=== PATIENT | male | born 1975 | race Caucasian/White ===

== ENCOUNTER 2016-11-03 17:05 | Emergency (ER) | payer OTHER ==
[2016-11-03] MEDS ORDERED: HYDROmorphone 1 MG/ML 1 ML SYRINGE IVP STA ×2 (18:12→20:16)
[2016-11-03] MEDS ORDERED: SODIUM CHLORIDE 0.9% 500 ML IV STA (18:12)
[2016-11-03] MEDS ORDERED: ACETAMINOPHEN TAB 325 MG TAB PO STA (18:12)
[2016-11-03] MEDS ORDERED: ONDANSETRON 4 MG/2 ML VIAL IVP STA (18:14)
--- NOTE | 2016-11-03 18:20 | ED ---
General Adult HPI - General Chief complaint: Back Pain/Injury Stated complaint: Back Pain Time Seen by Provider: 11/03/16 17:52 Source: patient, family, RN notes reviewed, old records reviewed Mode of arrival: wheelchair Limitations: no limitations - History of Present Illness Initial comments: Chief complaint and history of present illness is a 41-year-old male to complaint of back pain. The patient reports he had his seventh lumbar surgery on his back proximal one week ago in [place]. After the surgery he was starting had discomfort to the right hip area and now radiates into the right groin area and down the medial aspect of the right leg. Today's temperature 99.8 denying any cough or chills. She reports she's not been out of control his pain at home despite the fact that he is on MS Contin twice a day and Percocet every 6 hours. As well as Valium. He was told to come the hospital for evaluation. - Related Data Home Medications Medication Instructions Recorded Confirmed Aspirin 325 mg PO DAILY 05/16/16 11/03/16 Atenolol [Tenormin] 50 mg PO DAILY 05/16/16 11/03/16 Lisinopril [Prinivil] 20 mg PO DAILY 05/16/16 11/03/16 Lansoprazole [Prevacid] 30 mg PO DAILY 11/03/16 11/03/16 Morphine Sulfate [Ms Contin] 30 mg PO Q12HR 11/03/16 11/03/16 Phentermine HCl [Adipex-P] 37.5 mg PO QAM 11/03/16 11/03/16 oxyCODONE-APAP 10-325MG [Percocet 1 tab PO Q6HR 11/03/16 11/03/16 10-325 mg] Previous Rx's Medication Instructions Recorded Cephalexin [Keflex] 500 mg PO Q6HR #32 cap 11/03/16 Allergies Allergy/AdvReac Type Severity Reaction Status Date / Time NSAIDS (Non-Steroidal Allergy Anaphylaxis Verified 11/03/16 17:46 Anti-Inflamma Review of Systems ROS Statement: Those systems with pertinent positive or pertinent negative responses have been documented in the HPI. Review of systems. The patient complains of back pain not getting under control since surgery 1 week ago. Patient reports that of the multiple past surgeries one time he did develop infection in the back. The hardware was removed the area reportedly healed. He has had subsequent surgery since then. Patient otherwise not complaining of headache chest pain or shortness of breath. No change in bowel habits or appetite. He does report having taken some milk of magnesia to help with bowel movement. Past medical problems significant for asthma, he has had a stroke. Since then he had a hole in his heart repaired. Also hyperlipidemia and hypertension course chronic back pain. Orthopedic surgery 7 on his back. Patient reports ALLERGIES to nonsteroidal anti-inflammatories ROS Other: All systems not noted in ROS Statement are negative. Past Medical History Past Medical History: Asthma, CVA/TIA, GERD/Reflux, Hyperlipidemia, Hypertension Additional Past Medical History / Comment(s): chronic back pain History of Any Multi-Drug Resistant Organisms: None Reported Past Surgical History: Orthopedic Surgery Additional Past Surgical History / Comment(s): back surgery x 7, left knee, right ankle Past Psychological History: No Psychological Hx Reported Smoking Status: Former smoker Past Alcohol Use History: None Reported Past Drug Use History: None Reported General Exam - General Exam Comments Initial Comments: General: The patient is awake and alert, complaining of low back pain the operative site which was performed 1 week ago. States unable to get comfortable despite being on pain medications. Vital signs show temperature 99.8 pulse 70 respiratory rate 18 pulse ox 99% room air blood pressure 104/77. Eye: Pupils are equal, round and reactive to light, extra-ocular movements are intact ; there is normal conjunctiva bilaterally. No signs of icterus. Ears, nose, mouth and throat: There are moist mucous membranes and no oral lesions. Neck: The neck is supple, there is no tenderness . Cardiovascular: There is a regular rate and rhythm. No murmur, rub or gallop is appreciated. Respiratory: Lungs are clear to auscultation, respirations are non-labored, breath sounds are equal. No wheezes, stridor, rales, or rhonchi. Gastrointestinal: Soft, non-distended, non-tender abdomen without masses or organomegaly noted. There is no rebound or guarding present. No CVA tenderness. Bowel sounds are unremarkable. Appetite normal. Back: Back pain from recent surgery on lumbosacral spine. Musculoskeletal: The patient has had multiple surgeries on his back after one surgery developed a foot drop. That is persistent. This most recent surgery developed discomfort that radiates from the right side of the lumbar area over the top of the right hip and into the groin on the right side and down the medial aspect of the right leg to the knee. Neurological: Past history of strokes the left slightly weaker on the right side. Otherwise he seems to have recovered speech and although the functions. He does report he had foot drop on the right side and generalized weakness after surgery years ago. Skin: Skin is warm and dry and no rashes or lesions are noted. Limitations: no limitations Course Vital Signs 11/03/16 11/03/16 17:23 20:02 Temperature 99.8 F H 98.3 F Pulse Rate 78 89 Respiratory 18 20 Rate Blood Pressure 104/77 132/56 O2 Sat by Pulse 99 98 Oximetry Medical Decision Making - Medical Decision Making Patient had a CAT scan of the lumbosacral spine was reviewed to get again findings include L1-L2 interval lumbar laminectomy changes L2 pedicle screw in place. Streak artifact limits evaluation. Small amount of air seen within the posterior soft tissues compatible with the patient's recent postoperative state. Postoperative seroma noted. Infected collection is difficult to exclude. Impression is interval postoperative changes of lumbar laminectomy in particular screw placement at L1-L2 and L2-L3 as well as particular screws at placed up to L5. Additional laminectomy changes were present on prior examination. #2 posterior postsurgical soft tissue changes with postoperative seroma. Several foci of air also likely postoperative in nature rather than related to infected collection although infected collection is difficult to exclude. Correlate clinically. Dr. Willis Patient has localized pain similar to the day after surgery. Temperature 97.9. Afebrile. White count 7.1 hemoglobin 12.7 with hematocrit of 34. Potassium 4.7 BUN 6 creatinine 0.6 with GFR greater than 60. Glucose 91. AST 69. Urine clean no signs of infection. The patient will be placed on Keflex 500 4 times a day until cultures return. Patient was advised to call Hospital and his surgeon nurse tell them what's going on. If he has any changes - Lab Data Result diagrams: 11/03/16 18:40 11/03/16 18:40 Lab Results 11/03/16 11/03/16 11/03/16 Range/Units 18:40 18:40 18:40 WBC 7.1 (3.8-10.6) k/uL RBC 3.91 L (4.30-5.90) m/uL Hgb 12.7 L (13.0-17.5) gm/dL Hct 34.9 L (39.0-53.0) % MCV 89.3 (80.0-100.0) fL MCH 32.5 (25.0-35.0) pg MCHC 36.4 (31.0-37.0) g/dL RDW 13.1 (11.5-15.5) % Plt Count 331 (150-450) k/uL Neutrophils % 50 % Lymphocytes % 25 % Monocytes % 10 % Eosinophils % 11 % Basophils % 1 % Neutrophils # 3.5 (1.3-7.7) k/uL Lymphocytes # 1.8 (1.0-4.8) k/uL Monocytes # 0.7 (0-1.0) k/uL Eosinophils # 0.8 H (0-0.7) k/uL Basophils # 0.1 (0-0.2) k/uL Sodium 139 (137-145) mmol/L Potassium 4.7 (3.5-5.1) mmol/L Chloride 102 (98-107) mmol/L Carbon Dioxide 30 (22-30) mmol/L Anion Gap 7 mmol/L BUN 6 L (9-20) mg/dL Creatinine 0.64 L (0.66-1.25) mg/dL Est GFR (MDRD) Af Amer >60 (>60 ml/min/1.73 sqM) Est GFR (MDRD) Non-Af >60 (>60 ml/min/1.73 sqM) Glucose 91 (74-99) mg/dL Calcium 9.2 (8.4-10.2) mg/dL Total Bilirubin 0.6 (0.2-1.3) mg/dL AST 69 H (17-59) U/L ALT 56 (21-72) U/L Alkaline Phosphatase 40 (38-126) U/L Total Protein 7.1 (6.3-8.2) g/dL Albumin 3.8 (3.5-5.0) g/dL Urine Color Yellow Urine Appearance Clear (Clear) Urine pH 7.0 (5.0-8.0) Ur Specific [place] 1.012 (1.001-1.035) Urine Protein Negative (Negative) Urine Glucose (UA) Negative (Negative) Urine Ketones Negative (Negative) Urine Blood Negative (Negative) Urine Nitrite Negative (Negative) Urine Bilirubin Negative (Negative) Urine Urobilinogen <2.0 (<2.0) mg/dL Ur Leukocyte Esterase Negative (Negative) Disposition Clinical Impression: Postoperative back pain Disposition: HOME SELF-CARE Condition: Fair Instructions: Chronic Back Pain (ED) Additional Instructions: Report any changes to your surgeon. Call and informed of the urine emergency room this evening. Labs are all normal limits. CAT scan showed seromas but no evidence of infection necessarily but this may need to be further evaluated. Take cephalexin 500 4 times a day until cultures return. Continue with home pain medications Prescriptions: Cephalexin [Keflex] 500 mg PO Q6HR #32 cap Time of Disposition: 20:26
[2016-11-03] MEDS ORDERED: RX INFO: IV CONTRAST WAS GIVEN 1 EACH MISC MISCELLANE PRN (18:53)
[2016-11-03 18:54] LABS: Appearance,Urine Clear (Clear); Bilirubin,Urine Negative (Negative); Glucose,Urine (UA) Negative (Negative); Ketones,Urine Negative (Negative); Leukocyte Esterase,Urine Negative (Negative); Nitrite,Urine Negative (Negative); Protein,Urine Negative (Negative); Specific Gravity,Urine 1.012 (1.001-1.035); UA Billing (MACRO vs. MICRO) CHEM; Urobilinogen,Urine <2.0 mg/dL (<2.0)
[2016-11-03 19:03] LABS: Basophils # (A) 0.1 k/uL (0-0.2); Basophils % (A) 1 %; CH 31.6; CHCM 35.6; Eosinophils # (A) 0.8 k/uL (0-0.7); Eosinophils % (A) 11 %; HCT 34.9 % (39.0-53.0); HDW 3.24; HGB 12.7 gm/dL (13.0-17.5); Luc # (Auto) 0.22; Luc % (Auto) 3; Lymphocytes # (A) 1.8 k/uL (1.0-4.8); Lymphocytes % (A) 25 %; MCH 32.5 pg (25.0-35.0); MCHC 36.4 g/dL (31.0-37.0); MCV 89.3 fL (80.0-100.0); Mean Platelet Volume 8.6; Monocytes # (A) 0.7 k/uL (0-1.0); Monocytes % (A) 10 %; Neutrophils # (A) 3.5 k/uL (1.3-7.7); Neutrophils % (A) 50 %; RBC 3.91 m/uL (4.30-5.90); RDW 13.1 % (11.5-15.5); WBC 7.1 k/uL (3.8-10.6); WBC (Perox) 7.32
[2016-11-03 19:07] LABS: ALT 56 U/L (21-72); AST 69 U/L (17-59); Alkaline Phosphatase 40 U/L (38-126); Anion Gap 7 mmol/L; Blood Urea Nitrogen 6 mg/dL (9-20); Calcium 9.2 mg/dL (8.4-10.2); Carbon Dioxide 30 mmol/L (22-30); Chloride 102 mmol/L (98-107); Glucose 91 mg/dL (74-99); Non-African American GFR(MDRD) >60 (>60 ml/min/1.73 sqM); Potassium 4.7 mmol/L (3.5-5.1); Sodium 139 mmol/L (137-145); Total Bilirubin 0.6 mg/dL (0.2-1.3); Total Protein 7.1 g/dL (6.3-8.2)
--- NOTE | 2016-11-03 19:52 | CT ---
EXAMINATION TYPE: CT lumbar spine wo/w con DATE OF EXAM: 11/03/2016 7:41 PM COMPARISON: March 13, 2016 HISTORY: Patient complains of low back pain with radiation to the right hip post lower back surgery [address] DLP: 1884 mGycm CONTRAST: Unenhanced followed by contrast enhanced CT of the lumbar spine was performed. 100 cc of Omnipaque [address] of the lumbar spine was performed. Bone and soft tissue window settings are submitted as well as coronal and sagittal reconstructions. L1-L2: Interval lumbar laminectomy changes. L2 pedicular screw in place. Streak artifact limits evalu ation. Small amount of air seen within the posterior soft tissues compatible with patient's recent po stoperative state. Postoperative seromas noted. Infected collection is difficult to exclude. L2-L3: Interval lumbar laminectomy with pedicular screws in place. Intervertebral spacer noted. Posto perative seroma. Infected collection is difficult to exclude although definable enhancing abscess not seen with certainty. L3-L4: Lumbar laminectomy changes again noted. Pedicular screws and intervertebral body spacers in pl mayur. Postoperative seroma without one or 2 foci of air identified. Infected collection is difficult t o exclude. L4-L5: Stable laminectomy changes. Intervertebral body spacer. Interval pedicular screws noted. Posto perative changes posterior soft tissues with seroma noted. Infected collection is difficult to exclud e although no definite enhancing abscess seen. L5-S1: Stable laminectomy changes identified. Fixating L5-S1 screw is noted. Pedicular screw is ident ified extending into L5. Postsurgical soft tissue changes identified with postoperative seroma. Infec rafi collection is difficult to exclude although no enhancing abscess is seen. No paraspinal masses are identified. Lumbar segments are free if fracture. No other bony destructive process identified to suggest a discitis at this time. Stopped alignment is within normal limits. IMPRESSION: 1. Interval postoperative changes of lumbar laminectomy and pedicular screw placement at L1-2 and L2- 3 as well as pedicular screws are placed up to L5. Additional laminectomy changes were present on lizzeth or examination. 2. Posterior postsurgical soft tissue changes with postoperative seroma. Several foci of air also lik nasir postoperative in nature rather than related to infected collection although infected collection i s difficult to exclude. Correlate clinically.
[2016-11-03 20:03] VITALS: BP 132/56; PULSE 89; RESP 20; TEMP 98.3
[2016-11-03] MEDS ORDERED: CEPHALEXIN 500MG STARTER PACK 4 CAP BTL PO STA (20:22)
== END 2016-11-03 20:42 | disposition home or self-care (01) ==
LOC: EC 17:05
DX: M96.842 Postprocedural seroma of a musculoskeletal structure following a musculoskeletal system procedure (principal); I10 Essential (primary) hypertension; K21.9 Gastro-esophageal reflux disease without esophagitis; G89.29 Other chronic pain; Z87.891 Personal history of nicotine dependence; Z79.82 Long term (current) use of aspirin; Z79.899 Other long term (current) drug therapy; Z88.6 Allergy status to analgesic agent; Z98.890 Other specified postprocedural states; Y83.8 Other surgical procedures as the cause of abnormal reaction of the patient, or of later complication, without mention of misadventure at the time of the procedure
CPT/HCPCS: 36415; 80053; 85025; 81003; 87040; 87070; 87086; 87205; 72133; 99284; 96374; 96375; 96376; 96361; J2405; J1170; Q9967; 87077; 87186

== ENCOUNTER 2016-11-06 13:02 | Emergency (ER) | payer OTHER ==
--- NOTE | 2016-11-06 13:37 | ED ---
General Adult HPI - General Chief complaint: Extremity Injury, Lower Stated complaint: RT HIP AND BACK PAIN, POST OP FALL Time Seen by Provider: 11/06/16 13:18 Source: patient, EMS, RN notes reviewed Mode of arrival: EMS Limitations: no limitations - History of Present Illness Initial comments: Patient is a 41-year-old male presents to the emergency room for evaluation of fall injury. Patient states he had lumbar surgery done about a week ago. Patient states this is a 7 lumbar surgery. Patient states he has drop foot and his right knee gave out when he was walking down the steps. Patient states that he hit his right knee and landed on his buttocks. Patient states he's having pain in his tailbone and worsening pain in his lower back. Patient states that he is having pain radiating to his right hip and groin which has been consistent since his surgery. Patient also states he's having right knee pain. Patient denies urinary or fecal incontinence. Patient denies worsening numbness or tingling going down his legs. Patient denies any other injuries during incident. - Related Data Home Medications Medication Instructions Recorded Confirmed Aspirin 325 mg PO DAILY 05/16/16 11/06/16 Atenolol [Tenormin] 50 mg PO DAILY 05/16/16 11/06/16 Lisinopril [Prinivil] 20 mg PO DAILY 05/16/16 11/06/16 Lansoprazole [Prevacid] 30 mg PO DAILY 11/03/16 11/06/16 Morphine Sulfate [Ms Contin] 30 mg PO Q12HR 11/03/16 11/06/16 Phentermine HCl [Adipex-P] 37.5 mg PO QAM 11/03/16 11/06/16 oxyCODONE-APAP 10-325MG [Percocet 1 tab PO Q6HR 11/03/16 11/06/16 10-325 mg] Dexamethasone [Dexamethasone] See Taper PO DIRECTED 11/06/16 11/06/16 Diazepam [Valium] 10 mg PO Q6H 11/06/16 11/06/16 Sennosides-Docusate Sodium 1 tab PO DAILY 11/06/16 11/06/16 [Senokot-S] Previous Rx's Medication Instructions Recorded Cephalexin [Keflex] 500 mg PO Q6HR #32 cap 11/03/16 Allergies Allergy/AdvReac Type Severity Reaction Status Date / Time egg Allergy Unknown Verified 11/06/16 13:48 NSAIDS (Non-Steroidal Allergy Anaphylaxis Verified 11/06/16 13:48 Anti-Inflamma Review of Systems ROS Statement: Those systems with pertinent positive or pertinent negative responses have been documented in the HPI. ROS Other: All systems not noted in ROS Statement are negative. Past Medical History Past Medical History: Asthma, CVA/TIA, GERD/Reflux, Hyperlipidemia, Hypertension Additional Past Medical History / Comment(s): chronic back pain, cva right sided , and memory issues) History of Any Multi-Drug Resistant Organisms: None Reported Past Surgical History: Orthopedic Surgery Additional Past Surgical History / Comment(s): back surgery x 7, left knee, right ankle Past Psychological History: No Psychological Hx Reported Smoking Status: Former smoker Past Alcohol Use History: None Reported Past Drug Use History: None Reported General Exam - General Exam Comments Initial Comments: Sitting in exam room, no acute distress. Limitations: no limitations General appearance: alert, in no apparent distress Head exam: Present: atraumatic, normocephalic, normal inspection Eye exam: Present: normal appearance ENT exam: Present: normal exam Neck exam: Present: normal inspection Respiratory exam: Absent: respiratory distress Right Knee exam: Present: normal inspection, full ROM, tenderness (Tenderness on palpating over lateral and medial knee joint.) Neurovascular tendon exam: Absent: pulse deficit (2+ dorsal pedal and posterior tibial pulses), abnormal cap refill (capillary refill less than 2 seconds) Back exam: Present: other (Healing surgical incision with john place over lumbosacral spine area.) Neurological exam: Present: alert, oriented X3, CN II-XII intact Psychiatric exam: Present: normal affect, normal mood Skin exam: Present: warm, dry, intact. Absent: normal color Course Vital Signs 11/06/16 11/06/16 13:12 16:15 Temperature 98.7 F 97.7 F Pulse Rate 78 84 Respiratory 16 17 Rate Blood Pressure 124/85 113/59 O2 Sat by Pulse 100 98 Oximetry Medical Decision Making - Medical Decision Making Patient is a 41-year-old male presents to the emergency room for evaluation of fall. Patient had lumbar surgery done about a week ago in [place]. Patient having worsening low back pain until one pain. Patient also having right knee pain. X-ray show no acute findings. Results discussed with patient. Advised patient to follow-up with his surgeon on Wednesday. Patient has no known deficits. Patient states he understands everything that was discussed with him. Return parameters discussed. Case discussed with Dr. Zarate. - Radiology Data Radiology results: report reviewed, image reviewed Disposition Clinical Impression: Fall, Postoperative back pain Disposition: HOME SELF-CARE Condition: Good Instructions: Back Pain (ED) Additional Instructions: Continue with home medications. Please follow up with surgeon in 24-48 hours for reevaluation. If any new symptom arises or symptoms worsen, return to ER as soon as possible. Referrals: Rolo Snider MD [Primary Care Provider] - 1-2 days Time of Disposition: 15:23
[2016-11-06] MEDS ORDERED: HYDROmorphone 1 MG/ML 1 ML SYRINGE IVP STA (14:29)
--- NOTE | 2016-11-06 14:29 | XR ---
EXAMINATION TYPE: XR sacrum coccyx DATE OF EXAM: 11/06/2016 2:26 PM COMPARISON: NONE HISTORY: Back surgery one week ago. Pain after recent fall. TECHNIQUE: Sacrum and coccyx 2 views. FINDINGS: 2 views of sacrum and coccyx are obtained. There is fusion screw at L5-S1 level. There is n o acute displaced fracture of sacrum or coccyx seen. Sacroiliac joints are maintained bilaterally. So me overlying pelvic phleboliths are seen. IMPRESSION: No acute displaced sacral or coccygeal fracture is seen.
--- NOTE | 2016-11-06 14:37 | XR ---
EXAMINATION TYPE: XR knee complete RT DATE OF EXAM: 11/06/2016 2:26 PM CLINICAL HISTORY: Fall injury with right knee pain. TECHNIQUE: Three views of the right knee are obtained. COMPARISON: None. FINDINGS: There is no acute fracture/dislocation evident in right knee. There is mild to moderate roe int space loss with mild spurring patellofemoral compartment. The overlying soft tissue appears unre markable. IMPRESSION: There is no acute fracture or dislocation in the right knee.
--- NOTE | 2016-11-06 14:39 | XR ---
EXAM TYPE: LUMBAR SPINE X RAY SERIES COMPARISON: NONE HISTORY: Pain TECHNIQUE: 4 views are submitted. FINDINGS: Postsurgical changes are noted. Multilevel degenerative disc disease seen. No spondylolisthesis. No c ompression deformities. IMPRESSION: 1. Postoperative changes
[2016-11-06] MEDS ORDERED: HYDROcodone/APAP 5-325MG 1 EACH TAB PO STA (15:23)
[2016-11-06 16:16] VITALS: BP 113/59; PULSE 84; RESP 17; TEMP 97.7
== END 2016-11-06 16:20 | disposition home or self-care (01) ==
LOC: EC 13:02
DX: G89.18 Other acute postprocedural pain (principal); M54.5 Low back pain; M21.371 Foot drop, right foot; M25.561 Pain in right knee; M25.551 Pain in right hip; I10 Essential (primary) hypertension; K21.9 Gastro-esophageal reflux disease without esophagitis; J45.909 Unspecified asthma, uncomplicated; G89.29 Other chronic pain; Z87.891 Personal history of nicotine dependence; Z79.52 Long term (current) use of systemic steroids; Z79.82 Long term (current) use of aspirin; Z79.891 Long term (current) use of opiate analgesic; Z79.899 Other long term (current) drug therapy; Z88.6 Allergy status to analgesic agent; Z91.012 Allergy to eggs; Z98.890 Other specified postprocedural states; W10.9XXA Fall (on) (from) unspecified stairs and steps, initial encounter; Y93.01 Activity, walking, marching and hiking
CPT/HCPCS: 99284; 96374; 72110; 72220; 73562; J1170

== ENCOUNTER 2016-12-08 13:52 | Emergency (ER) | payer OTHER ==
[2016-12-08] MEDS ORDERED: HYDROmorphone 1 MG/ML 1 ML SYRINGE IVP STA (14:39)
--- NOTE | 2016-12-08 15:23 | XR ---
EXAMINATION TYPE: XR pelvis AP view DATE OF EXAM: 12/08/2016 CLINICAL HISTORY: Low back and pelvic pain after recent fall. TECHNIQUE: 2 frontal images of the pelvis are acquired. COMPARISON: Sacrum and coccyx 2 view November 06, 2016.. FINDINGS: There is no acute fracture/dislocation evident in the pelvis. The hip and sacroiliac join ts appear symmetric and unremarkable. There is fusion screw lumbosacral junction. There is partial vi sualization of surgical disc material and posterior fusion hardware in the lower lumbar spine. There is sacralized left L5 segment redemonstrated. Laminectomy defects and spinous process resection lower lumbar spine is again seen. IMPRESSION: There is no acute fracture or dislocation in the pelvis.
--- NOTE | 2016-12-08 15:37 | XR ---
Lumbosacral spine HISTORY: Low back pain 5 views of the lumbosacral spine correlated to prior 06 November 2016 The lumbar fusion changes are again noted. Multilevel laminectomies. Lumbar vertebral bodies show pre served height and alignment. Disc spaces are stable multilevel spondylosis is present. IMPRESSION: Stable postoperative changes, degenerative disc disease.
[2016-12-08] MEDS ORDERED: MORPHINE SULFATE 4 MG/ML SYRINGE IVP STA (16:00)
[2016-12-08] MEDS ORDERED: DIAZEPAM 5 MG TAB PO STA (16:00)
--- NOTE | 2016-12-08 16:08 | ED ---
Back Pain HPI - General Chief Complaint: Back Pain/Injury Stated Complaint: Back Pain Source: patient, EMS Limitations: physical limitation - History of Present Illness Initial Comments: 41-year-old male with a past history of multiple lower thoracic/ lumbar surgeries presented for evaluation of acute on chronic back pain. He states that yesterday he was walking backwards and tripped over a chair falling onto his back. He states that he has been taking his prescribed Apache and Valium without relief. He called both his primary care physician and his orthopedic surgeon and he was unable to get appointments today and was instructed to come to the ER for further treatment and evaluation. He states the back pain is worse on the right side and radiates around to the hip. There is also mild radiation down his thigh and stops at the knee. Denies any lower extremity weakness, saddle anesthesia, bladder or bowel dysfunction. There were no other injuries from the fall. - Related Data Home Medications Medication Instructions Recorded Confirmed Aspirin 325 mg PO DAILY 05/16/16 12/08/16 Atenolol [Tenormin] 50 mg PO DAILY 05/16/16 12/08/16 Lisinopril [Prinivil] 20 mg PO DAILY 05/16/16 12/08/16 Lansoprazole [Prevacid] 30 mg PO DAILY 11/03/16 12/08/16 Morphine Sulfate [Ms Contin] 30 mg PO Q12HR 11/03/16 12/08/16 Phentermine HCl [Adipex-P] 37.5 mg PO QAM 11/03/16 12/08/16 oxyCODONE-APAP 10-325MG [Percocet 1 tab PO Q6HR 11/03/16 12/08/16 10-325 mg] Diazepam [Valium] 10 mg PO Q6H 11/06/16 12/08/16 Sennosides-Docusate Sodium 1 tab PO DAILY 11/06/16 12/08/16 [Senokot-S] Allergies Allergy/AdvReac Type Severity Reaction Status Date / Time egg Allergy Unknown Verified 12/08/16 14:52 NSAIDS (Non-Steroidal Allergy Anaphylaxis Verified 12/08/16 14:52 Anti-Inflamma Review of Systems ROS Statement: Those systems with pertinent positive or pertinent negative responses have been documented in the HPI. ROS Other: All systems not noted in ROS Statement are negative. Constitutional: Denies: fever, chills Eyes: Denies: eye pain, eye discharge ENT: Denies: ear pain, throat pain Respiratory: Denies: cough, dyspnea Cardiovascular: Denies: chest pain, palpitations Endocrine: Denies: fatigue, polydipsia Gastrointestinal: Denies: abdominal pain, nausea, vomiting Genitourinary: Denies: urgency, dysuria Musculoskeletal: Reports: back pain. Denies: arthralgia, myalgia Skin: Denies: rash, lesions Neurological: Denies: headache, weakness Psychiatric: Denies: anxiety, depression Hematological/Lymphatic: Denies: easy bleeding, easy bruising Past Medical History Past Medical History: Asthma, CVA/TIA, GERD/Reflux, Hyperlipidemia, Hypertension Additional Past Medical History / Comment(s): chronic back pain, cva right sided , and memory issues) History of Any Multi-Drug Resistant Organisms: None Reported Past Surgical History: Orthopedic Surgery Additional Past Surgical History / Comment(s): back surgery x 7, left knee, right ankle Past Psychological History: No Psychological Hx Reported Smoking Status: Former smoker Past Alcohol Use History: None Reported Past Drug Use History: None Reported General Exam Limitations: physical limitation General appearance: alert, in distress Head exam: Present: atraumatic, normocephalic, normal inspection Eye exam: Present: normal appearance, PERRL, EOMI. Absent: scleral icterus, conjunctival injection, periorbital swelling ENT exam: Present: normal exam, mucous membranes moist Neck exam: Present: normal inspection. Absent: tenderness, meningismus, lymphadenopathy Respiratory exam: Present: normal lung sounds bilaterally. Absent: respiratory distress, wheezes, rales, rhonchi, stridor Cardiovascular Exam: Present: regular rate, normal rhythm, normal heart sounds. Absent: systolic murmur, diastolic murmur, rubs, gallop, clicks GI/Abdominal exam: Present: soft, normal bowel sounds. Absent: distended, tenderness, guarding, rebound, rigid Rectal exam: Present: deferred Extremities exam: Present: normal inspection, full ROM, normal capillary refill. Absent: tenderness, pedal edema, joint swelling, calf tenderness Back exam: Present: tenderness, muscle spasm, paraspinal tenderness, vertebral tenderness. Absent: CVA tenderness (R), CVA tenderness (L) Neurological exam: Present: alert, oriented X3, CN II-XII intact Psychiatric exam: Present: normal affect, normal mood Skin exam: Present: warm, dry, intact, normal color. Absent: rash Course Vital Signs 12/08/16 13:55 Temperature 98 F Pulse Rate 91 Respiratory 17 Rate Blood Pressure 146/82 O2 Sat by Pulse 97 Oximetry Medical Decision Making - Medical Decision Making 41-year-old male with past medical history of multiple thoracolumbar surgeries presenting for evaluation of acute on chronic back pain after falling backwards onto his back. Pain is been nonresponsive to his home Apache and Valium. He tried to follow-up with his primary care physician and orthopedic surgeon but was unable to get an appointment today and was instructed to come to the ED. On physical examination he does appear distressed and a midline back incision is noted without any vertebral or paraspinal deformity. Pain is more intense to palpation on the right side compared to the left. X-rays to both the pelvis and lumbar spine revealed no significant abnormalities with joint spaces intact and hardware in normal alignment. Patient was given Dilaudid for pain control but stated this did not affect it whatsoever. He is informed of all results and that he would be given Valium for muscle relaxation and morphine for pain control and then discharged home with instructions to continue his home therapies and to follow-up with his [facility] care physician and orthopedic surgeon. He was further advised to return to this facility if his symptoms should worsen or persist. Upon discharge the patient had improvement in his symptoms. He acknowledged an understanding of this information and agreed with this plan of care. Disposition Clinical Impression: Mechanical back pain, Fall Disposition: HOME SELF-CARE Condition: Stable Instructions: Acute Low Back Pain (ED), Chronic Back Pain (ED) Additional Instructions: Continue taking her home Apache and Valium as previously instructed. Please call keep your orthopedic appointment on Wednesday as scheduled. Also schedule an appointment with the primary care physician for continued follow-up. Referrals: Rolo Snider MD [Primary Care Provider] - 1-2 days Time of Disposition: 16:08
[2016-12-08 16:29] VITALS: BP 135/76; PULSE 76; RESP 16; TEMP 98.2
== END 2016-12-08 16:39 | disposition home or self-care (01) ==
LOC: EC 13:52
DX: M54.9 Dorsalgia, unspecified (principal); K21.9 Gastro-esophageal reflux disease without esophagitis; E78.5 Hyperlipidemia, unspecified; I10 Essential (primary) hypertension; Z86.73 Personal history of transient ischemic attack (TIA), and cerebral infarction without residual deficits; Z87.891 Personal history of nicotine dependence; Z79.82 Long term (current) use of aspirin; Z79.891 Long term (current) use of opiate analgesic; Z79.899 Other long term (current) drug therapy; Z88.6 Allergy status to analgesic agent; Z91.012 Allergy to eggs; Z98.890 Other specified postprocedural states; W01.0XXA Fall on same level from slipping, tripping and stumbling without subsequent striking against object, initial encounter
CPT/HCPCS: 72110; 72170; 99284; 96374; 96375; J2270; J1170

== ENCOUNTER → 2016-12-31 | Outpatient (CLI) | payer OTHER ==
--- NOTE | 2016-12-31 08:12 | CT ---
EXAMINATION TYPE: CT lumbar spine wo con DATE OF EXAM: 12/31/2016 COMPARISON: NONE HISTORY: Pain, loss of feeling in Rt foot and leg CT DLP: 1623.2 mGycm CONTRAST: None TECHNIQUE: CT of the lumbar spine is performed on a spiral scan at 3 mm thick sections. Reconstructed images are performed in the coronal and sagittal planes. FINDINGS: Pedicle screws are present L2-L4. Screws present L5-S1 disc level disc spacer present L2-3 L3-4 and L4-5. Laminectomy has been performed through these levels. T12-L1: No focal disc herniation or significant disc bulge is evident. No spinal canal stenosis or ne ural foraminal stenosis present. T12-L1: No focal disc herniation or significant disc bulge is evident. No spinal canal stenosis or neural foraminal stenosis is present. L1-L2: Minimal disc bulge is present with anterior thecal sac contact. No spinal canal stenosis prese nt. Neural foramen are patent. L2-L3: Mild broad-based disc bulge may be present with anterior thecal sac contact. No stenosis prese nt. Beam hardening artifact is present. L3-L4: There may be some central residual disc bulge present with mild to moderate anterior thecal sa c compression. No stenosis is present. Neural foramen are patent. Beam hardening artifact limits eval uation at this level. L4-L5: Loss of disc height is to this level. No spinal canal stenosis is present. Granulation tissue is present posteriorly. Left foraminal narrowing may be present. Facet hypertrophy is present. L5-S1: There is loss of disc height through this level. No spinal canal stenosis present. Neural fora men are patent. Facet hypertrophy is present. Postsurgical changes are present in the posterior soft tissues. Vertebral alignment appears normal. Soft tissue changes are present in the levels of the laminectomy. IMPRESSION: 1. Exam limited due to beam hardening artifact 2. Suggestion of a small to moderate residual disc bulge at the L3-4 level with mild to moderate ante rior thecal sac compression. No stenosis is present. This may be a change from 11/03/2016 although the beam hardening artifact previously could obscure this finding. 3. Multilevel facet degenerative changes. Pedicle screws are present.
== END | disposition home or self-care (01) ==
LOC: RADCTMAIN 06:44
PROVIDERS: ATTEND Neurological Surgery
DX: M47.816 Spondylosis without myelopathy or radiculopathy, lumbar region (principal); Z98.1 Arthrodesis status
CPT/HCPCS: 72131

== ENCOUNTER 2017-02-20 19:06 | Emergency (ER) | payer OTHER ==
[2017-02-20] MEDS ORDERED: HYDROmorphone 1 MG/ML 1 ML SYRINGE IVP STA (19:21)
--- NOTE | 2017-02-20 19:25 | ED ---
General Adult HPI - General Stated complaint: fall Source: RN notes reviewed - History of Present Illness Initial comments: This is a 42-year-old male who presents emergency Department complaining of left shoulder left hip and lower back pain. Patient states she's had an extensive history of back surgeries. Patient states she was walking and she slipped and fell onto the ground on his left side. Patient states this pain began. Patient denies any head pain patient denies any neck pain. Patient denies any chest pain difficulty breathing or shortness of breath. Patient denies abdominal pain. Patient denies any right-sided pain. Patient denies any sites of bleeding that he knows of. - Related Data Home Medications Medication Instructions Recorded Confirmed Aspirin 325 mg PO DAILY 05/16/16 02/20/17 Atenolol [Tenormin] 50 mg PO DAILY 05/16/16 02/20/17 Lisinopril [Prinivil] 20 mg PO DAILY 05/16/16 02/20/17 Diazepam [Valium] 5 mg PO BID 02/20/17 02/20/17 HYDROcodone/APAP 10-325MG [Hope 1 tab PO TID PRN 02/20/17 02/20/17 10-325] Omeprazole [PriLOSEC] 20 mg PO AC-BRKFST 02/20/17 02/20/17 Allergies Allergy/AdvReac Type Severity Reaction Status Date / Time egg Allergy Unknown Verified 02/20/17 19:15 Fish Containing Products Allergy Unknown Verified 02/20/17 19:15 [Fish] NSAIDS (Non-Steroidal Allergy Anaphylaxis Verified 02/20/17 19:15 Anti-Inflamma Review of Systems ROS Statement: Those systems with pertinent positive or pertinent negative responses have been documented in the HPI. ROS Other: All systems not noted in ROS Statement are negative. Past Medical History Past Medical History: Asthma, CVA/TIA, GERD/Reflux, Hyperlipidemia, Hypertension Additional Past Medical History / Comment(s): chronic back pain, cva right sided , and memory issues) History of Any Multi-Drug Resistant Organisms: None Reported Past Surgical History: Orthopedic Surgery Additional Past Surgical History / Comment(s): back surgery x 7, left knee, right ankle Past Psychological History: No Psychological Hx Reported Smoking Status: Former smoker Past Alcohol Use History: None Reported Past Drug Use History: None Reported General Exam - General Exam Comments Initial Comments: GENERAL: Patient is well-developed and well-nourished. Patient is nontoxic and well- hydrated and is in mild distress. ENT: Neck is soft and supple. No significant lymphadenopathy is noted. Oropharynx is clear. Moist mucous membranes. Neck has full range of motion without eliciting any pain. T EYES: The sclera were anicteric and conjunctiva were pink and moist. Extraocular movements were intact and pupils were equal round and reactive to light. Eyelids were unremarkable. PULMONARY: Unlabored respirations. Good breath sounds bilaterally. No audible rales rhonchi or wheezing was noted. CARDIOVASCULAR: There is a regular rate and rhythm without any murmurs gallops or rubs. ABDOMEN: Soft and nontender with normal bowel sounds. No palpable organomegaly was noted. There is no palpable pulsatile mass. SKIN: Skin is clear with no lesions or rashes and otherwise unremarkable. NEUROLOGIC: Patient is alert and oriented x3. Cranial nerves II through XII are grossly intact. Motor and sensory are also intact. Normal speech, volume and content. Symmetrical smile. MUSCULOSKELETAL: Patient has tenderness to the lateral left hip. Patient has tenderness to the lateral left shoulder as well and he has some lumbosacral spine tenderness in the midline. LYMPHATICS: No significant lymphadenopathy is noted PSYCHIATRIC: Normal psychiatric evaluation. Course Vital Signs 02/20/17 19:16 Temperature 97.3 F L Pulse Rate 93 Respiratory 18 Rate Blood Pressure 161/116 O2 Sat by Pulse 98 Oximetry Medical Decision Making - Medical Decision Making X-ray of the shoulder shows no acute injury. X-ray of the pelvis shows no acute injury. X-ray of the lumbar spine shows no acute injury. Disposition Clinical Impression: Fall, Multiple contusions Disposition: HOME SELF-CARE Instructions: Contusion in Adults (ED) Referrals: None,Stated [REFERRING] - 1-2 days Time of Disposition: 20:38
[2017-02-20 19:29] VITALS: RESP 18
--- NOTE | 2017-02-20 20:30 | XR ---
EXAMINATION TYPE: XR shoulder limited LT DATE OF EXAM: 02/20/2017 COMPARISON: NONE HISTORY: 42-year-old male with left shoulder pain after fall TECHNIQUE: 2 views FINDINGS: Mild to moderate degenerative changes at the AC joint. No evident dislocation. No acute fracture seen on these limited 2 views. IMPRESSION: Very limited 2 views. No evident dislocation or visualized fracture. AC joint OA.
--- NOTE | 2017-02-20 20:32 | XR ---
EXAMINATION TYPE: XR lumbosacral spine min 4V DATE OF EXAM: 02/20/2017 COMPARISON: 12/08/2016 HISTORY: 42-year-old male with a generalized pain after fall TECHNIQUE: 5 views FINDINGS: L2-L5 posterior fusion with interbody devices. There is additional interbody device bridging L5-S1. M ild degenerative disc height loss within the visualized lower thoracic and remainder of the upper lum bar spine. Vertebral body heights are preserved. Corresponding laminectomies at the surgical levels. Alignment is maintained. IMPRESSION: No evident complication of the L2-S1 posterior/interbody fusion. Corresponding laminectomies. Degener ative disc disease in the visualized lower thoracic and upper lumbar spine.
--- NOTE | 2017-02-20 20:34 | XR ---
EXAMINATION TYPE: XR pelvis AP view DATE OF EXAM: 02/20/2017 COMPARISON: 12/08/2016 HISTORY: 42-year-old male with pain after fall today TECHNIQUE: AP view FINDINGS: SI joints appear symmetric and intact. Symphysis is intact. There is similar mild superolateral loss of right hip joint space. No acute fracture, subluxation, or dislocation. Some limitation in assessme nt of the right femoral neck due to external rotation of the head during image acquisition. IMPRESSION: No acute osseous abnormality seen.
[2017-02-20 21:24] VITALS: BP 161/90; PULSE 89; TEMP 97.6
== END 2017-02-20 21:23 | disposition home or self-care (01) ==
LOC: EC 19:06
DX: S40.012A Contusion of left shoulder, initial encounter (principal); S70.02XA Contusion of left hip, initial encounter; S30.0XXA Contusion of lower back and pelvis, initial encounter; K21.9 Gastro-esophageal reflux disease without esophagitis; I10 Essential (primary) hypertension; Z86.73 Personal history of transient ischemic attack (TIA), and cerebral infarction without residual deficits; Z87.891 Personal history of nicotine dependence; Z98.890 Other specified postprocedural states; Z79.82 Long term (current) use of aspirin; Z79.899 Other long term (current) drug therapy; Z88.6 Allergy status to analgesic agent; Z91.012 Allergy to eggs; Z91.013 Allergy to seafood; W01.0XXA Fall on same level from slipping, tripping and stumbling without subsequent striking against object, initial encounter; Y93.01 Activity, walking, marching and hiking
CPT/HCPCS: 72110; 72170; 73020; 99283; 96374; J1170

== ENCOUNTER 2017-04-26 16:56 | Emergency (ER) | payer OTHER ==
[2017-04-26 16:59] VITALS: RESP 18
[2017-04-26] MEDS ORDERED: HYDROcodone/APAP 5-325MG 1 EACH TAB PO STA ×2 (17:03→18:12)
--- NOTE | 2017-04-26 17:25 | ED ---
General Adult HPI - General Chief complaint: Extremity Injury, Lower Stated complaint: Right Foot Injury Source: patient Mode of arrival: wheelchair Limitations: no limitations - History of Present Illness Initial comments: This is a 42-year-old male who presents to the emergency department with chief complaint of right foot injury. 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 Patient describes the pain as a sharp, stabbing constant pain. Currently rates his pain as 9/10. Patient reports that he has an allergy to anti-inflammatories. Patient reports that he was brought to the emergency department by his daughter. Patient also states that he has had 8 back surgeries. He reports that since his last back surgery he has had a drop foot and has been unable to fully move his right toes or ankle. Denies fever, chills, chest pain, shortness of breath, abdominal pain , nausea or vomiting, constipation or diarrhea, dysuria or hematuria, numbness or tingling, headache or vision changes. - Related Data Home Medications Medication Instructions Recorded Confirmed Aspirin 325 mg PO DAILY 05/16/16 02/20/17 Atenolol [Tenormin] 50 mg PO DAILY 05/16/16 02/20/17 Lisinopril [Prinivil] 20 mg PO DAILY 05/16/16 02/20/17 Diazepam [Valium] 5 mg PO BID 02/20/17 02/20/17 HYDROcodone/APAP 10-325MG [Alice 1 tab PO TID PRN 02/20/17 02/20/17 10-325] Omeprazole [PriLOSEC] 20 mg PO AC-BRKFST 02/20/17 02/20/17 Previous Rx's Medication Instructions Recorded traMADol HCL [Ultram] 100 mg PO Q6HR PRN #40 tab 04/26/17 Allergies Allergy/AdvReac Type Severity Reaction Status Date / Time egg Allergy Unknown Verified 04/26/17 16:59 Fish Containing Products Allergy Unknown Verified 04/26/17 16:59 [Fish] NSAIDS (Non-Steroidal Allergy Anaphylaxis Verified 04/26/17 16:59 Anti-Inflamma Review of Systems ROS Statement: Those systems with pertinent positive or pertinent negative responses have been documented in the HPI. ROS Other: All systems not noted in ROS Statement are negative. Past Medical History Past Medical History: Asthma, CVA/TIA, GERD/Reflux, Hyperlipidemia, Hypertension Additional Past Medical History / Comment(s): chronic back pain, cva right sided , and memory issues) History of Any Multi-Drug Resistant Organisms: None Reported Past Surgical History: Orthopedic Surgery Additional Past Surgical History / Comment(s): back surgery x 7, left knee, right ankle Past Psychological History: No Psychological Hx Reported Smoking Status: Former smoker Past Alcohol Use History: None Reported Past Drug Use History: None Reported General Exam - General Exam Comments Initial Comments: General: Awake and alert, well-developed; appears uncomfortable and in pain. HEENT: Head atraumatic, normocephalic. Pupils are equal, round and reactive to light. Extraocular movements intact. Neck: Supple. Normal ROM. Cardiovascular: Regular rate and rhythm. No murmurs, rubs or gallops. Chest symmetrical. Respiratory: Lungs clear to auscultation bilaterally. No wheezes, rales or rhonchi. Normal respiratory effort with no use of accessory muscles. Musculoskeletal: Contusion with moderate swelling at medial aspect of dorsum of right foot. Tenderness with palpation. No erythema. Skin: [place], warm and dry without rashes or lesions. Neurological: Alert and oriented x3. CN II-XII grossly intact. Speech is fluent and answers are appropriate. No focal neuro deficits. Psychiatric: Normal mood and affect. No overt signs of depression or anxiety noted. Limitations: no limitations Course Vital Signs 04/26/17 16:58 Temperature 98.6 F Pulse Rate 88 Respiratory 18 Rate Blood Pressure 121/82 O2 Sat by Pulse 98 Oximetry Medical Decision Making - Medical Decision Making This is a 42-year-old male who presents to emergency department with right foot injury. X-ray reveals soft tissue swelling without evidence of fracture. This case was discussed with attending physician, Dr. Lucia. Patient will be discharged home with recommendation to use ice, elevation and compression. He will be prescribed Ultram as needed for pain. - Radiology Data Radiology results: report reviewed Impression: 1. Negative for fracture or malalignment. 2. Prominent soft tissue swelling. 3. Tiny submillimeter multifocal radiopaque foreign bodies noted. Disposition Clinical Impression: Contusion of right foot Disposition: HOME SELF-CARE Condition: Good Instructions: Foot Contusion (ED) Additional Instructions: Please follow up with primary care provider within 1-2 days. Return to emergency department if symptoms should worsen or any concerns arise. Prescriptions: traMADol HCL [Ultram] 100 mg PO Q6HR PRN #40 tab PRN Reason: Pain Referrals: Rolo Snider MD [Primary Care Provider] - 1-2 days Time of Disposition: 18:49
--- NOTE | 2017-04-26 18:13 | XR ---
PROCEDURE: XR foot complete RT DATE AND TIME: 04/26/2017 5:15 PM REFERRING PHYSICIAN: Melissa Lynn CLINICAL INDICATION: PHH, Pain TECHNIQUE: Department protocol. COMPARISON: None FINDINGS: There is prominent soft tissue swelling over the forefoot and midfoot, but no fracture or malalignmen t. There are also tiny submillimeter flecks of radiopaque foreign body material projecting over the thir d toe and, to a lesser extent, the fourth toe. Whether these tiny opacities are acute, subacute, or c hronic, cannot be ascertained radiographically. IMPRESSION: 1. NEGATIVE FOR FRACTURE OR MALALIGNMENT. 2. PROMINENT SOFT TISSUE SWELLING. 3. TINY SUBMILLIMETER MULTIFOCAL RADIOPAQUE FOREIGN BODIES NOTED.
[2017-04-26 18:58] VITALS: BP 128/88; PULSE 62; TEMP 98
== END 2017-04-26 18:58 | disposition home or self-care (01) ==
LOC: EC 16:56
DX: S90.31XA Contusion of right foot, initial encounter (principal); K21.9 Gastro-esophageal reflux disease without esophagitis; I10 Essential (primary) hypertension; Z86.73 Personal history of transient ischemic attack (TIA), and cerebral infarction without residual deficits; Z98.890 Other specified postprocedural states; Z87.891 Personal history of nicotine dependence; Z79.82 Long term (current) use of aspirin; Z79.899 Other long term (current) drug therapy; Z91.012 Allergy to eggs; Z91.013 Allergy to seafood; Z88.6 Allergy status to analgesic agent; W20.8XXA Other cause of strike by thrown, projected or falling object, initial encounter
CPT/HCPCS: 99283

== ENCOUNTER → 2020-06-26 | Outpatient (CLI) | payer OTHER ==
--- NOTE | 2020-06-27 15:41 | CT ---
EXAMINATION TYPE: CT lumbar spine wo con DATE OF EXAM: 06/26/2020 COMPARISON: 06/15/2017 HISTORY: Lower back pain, possible hardware malfunction CT DLP: 1865.7 mGycm CONTRAST: None TECHNIQUE: CT of the lumbar spine is performed on a spiral scan at 3 mm thick sections. Reconstructed images are performed in the coronal and sagittal planes. FINDINGS: There is fusion L2-L5. Laminectomies been performed through these levels. Disc spacers are present. Some disc space narrowing minimal retrolisthesis of L1 on L2 is present. No spinal canal svetlana nosis is present. No spinal canal stenosis is evident. There is loss of disc height throughout the lumbar spine. Some m ild foraminal narrowing is present L4-5. IMPRESSION: Postsurgical changes to the lumbar spine. 2. Degenerative disc changes. 3. Foraminal narrowing L4-5 bilaterally
== END | disposition home or self-care (01) ==
LOC: RADCTMAIN 17:51
PROVIDERS: ATTEND Neurological Surgery
DX: M48.061 Spinal stenosis, lumbar region without neurogenic claudication (principal); M51.36 Other intervertebral disc degeneration, lumbar region; Z98.1 Arthrodesis status
CPT/HCPCS: 72131

== ENCOUNTER 2020-11-06 23:17 | Emergency (ER) | payer OTHER ==
[2020-11-06] MEDS ORDERED: DIPH,PERTUS(ACELL)TETVAC-LF 0.5 ML VIAL IM ONE (23:21)
[2020-11-06] MEDS ORDERED: AMPICILLIN-SULBACTAM 3 GM in SODIUM CHLORIDE 0.9% 100 ML IVPB STA (23:21)
[2020-11-06] MEDS ORDERED: HYDROmorphone 1 MG/ML 1 ML SYRINGE IVP STA (23:21)
[2020-11-06] MEDS ORDERED: SODIUM CHLORIDE 0.9% 1,000 ML IV STA (23:21)
--- NOTE | 2020-11-06 23:24 | ED ---
Animal Bite HPI - General Stated Complaint: Dog Bite Time Seen by Provider: 11/06/20 23:21 Source: RN notes reviewed, old records reviewed Mode of arrival: EMS Limitations: no limitations - History of Present Illness Initial Comments: This is a 45-year-old male DF for evaluation. Patient presents today for evaluation animal bite to right hand. Patient has been bulldog at home dog did bite right hand causing multiple lacerations to his hand and severe pain. Severe pain decreased range of motion with an extension and closing secondary to pain. No other injury from the bite. Patient denying drugs or alcohol use tonight medical history significant for asthma high blood pressure high cholesterol. MD Complaint: animal bite, other (Dog bite) -: minutes(s) Right: Hand Animal: dog Description: household pet Mechanism: bite Pain Description: sharp, constant Severity scale (1-10): 9 Context: animals fighting Associated Symptoms: erythema, bleeding Treatments Prior to Arrival: wound dressing(s) - Related Data Home Medications Medication Instructions Recorded Confirmed atenoloL [Tenormin] 50 mg PO DAILY 05/16/16 12/29/17 lisinopriL [Prinivil] 20 mg PO DAILY 05/16/16 02/20/17 HYDROcodone/APAP 10-325MG [[place] 1 tab PO TID PRN 02/20/17 02/20/17 10-325] Omeprazole [PriLOSEC] 20 mg PO AC-BRKFST 02/20/17 02/20/17 Albuterol Sulfate [Proair 1 puff PO 12/29/17 Respiclick] Cyclobenzaprine [Flexeril] 12/29/17 Gabapentin [Neurontin] 800 mg PO 12/29/17 Morphine Sulfate [Ms Contin] 15 mg PO Q8HR PRN 12/29/17 12/29/17 Phentermine HCl [Adipex-P] 12/29/17 Sennosides [Senna] 12/29/17 diphenhydrAMINE HCL [Benadryl] 25 mg PO HS 12/29/17 12/29/17 Previous Rx's Medication Instructions Recorded Amoxic-Pot Clav 875-125Mg 1 tab PO Q12HR #20 tablet 11/07/20 [Augmentin 875-125] Allergies Allergy/AdvReac Type Severity Reaction Status Date / Time egg Allergy Unknown Verified 04/26/17 16:59 Fish Containing Products Allergy Unknown Verified 04/26/17 16:59 [Fish] NSAIDS (Non-Steroidal Allergy Anaphylaxis Verified 04/26/17 16:59 Anti-Inflamma Review of Systems ROS Statement: Those systems with pertinent positive or pertinent negative responses have been documented in the HPI. ROS Other: All systems not noted in ROS Statement are negative. 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 Past Psychological History: No Psychological Hx Reported Past Alcohol Use History: None Reported Past Drug Use History: None Reported - Past Family History Father Family Medical History: Asthma, Cancer, Coronary Artery Disease (CAD) Mother Family Medical History: Asthma, Coronary Artery Disease (CAD), Diabetes Mellitus General Exam General appearance: alert, in no apparent distress Head exam: Present: atraumatic, normocephalic, normal inspection Eye exam: Present: normal appearance, PERRL, EOMI. Absent: scleral icterus, conjunctival injection, periorbital swelling ENT exam: Present: normal exam, mucous membranes moist Neck exam: Present: normal inspection. Absent: tenderness, meningismus, lymphadenopathy Respiratory exam: Present: normal lung sounds bilaterally. Absent: respiratory distress, wheezes, rales, rhonchi, stridor Cardiovascular Exam: Present: regular rate, normal rhythm, normal heart sounds. Absent: systolic murmur, diastolic murmur, rubs, gallop, clicks GI/Abdominal exam: Present: soft, normal bowel sounds. Absent: distended, tenderness, guarding, rebound, rigid Extremities exam: Present: normal inspection, full ROM, normal capillary refill. Absent: tenderness, pedal edema, joint swelling, calf tenderness Right Hand Wrist exam: Present: tenderness, swelling, laceration (Multiple superficial lacerations to hand), other (Patient able to take wearing off). Absent: full ROM (Decreased) Neuro motor exam: Present: wrist extension intact, thumb opposition intact Neurosensory exam: Present: radial nerve intact, ulnar nerve intact, median nerve intact Vascular: Present: normal capillary refill, radial pulse, brachial pulse, ulnar pulse Back exam: Present: normal inspection Neurological exam: Present: alert, oriented X3, CN II-XII intact Psychiatric exam: Present: normal affect, normal mood Skin exam: Present: warm, dry, intact, normal color. Absent: rash Course Vital Signs 11/06/20 11/07/20 23:19 02:01 Temperature 98.8 F 98.8 F Pulse Rate 87 82 Respiratory 20 20 Rate Blood Pressure 146/105 140/97 O2 Sat by Pulse 97 97 Oximetry - Reevaluation(s) Reevaluation #1: Medical record is reviewed Symptoms improved here in the ER Patient informed of results and questions answered Procedures - Orthopedic Splinting/Casting Injury #1 Side: right Upper Extremity Immobilizer: glynn tape, finger (other), Maurilio wrap, synthetic pre-padded splint Medical Decision Making - Medical Decision Making 45 male who did suffer dogbite with thumb fracture. Wounds are cleaned, no need for laceration repair. Fracture splinted patient can follow with orthopedics - Radiology Data Radiology results: report reviewed (X-ray hand does show thumb fracture), image reviewed Disposition Clinical Impression: Bite by animal, Dog bite Disposition: HOME SELF-CARE Condition: Good Instructions (If sedation given, give patient instructions): Animal Bite (ED) Prescriptions: Amoxic-Pot Clav 875-125Mg [Augmentin 875-125] 1 tab PO Q12HR #20 tablet Is patient prescribed a controlled substance at d/c from ED?: No Referrals: Jackson Torres MD [Primary Care Provider] - 1-2 days
[2020-11-06 23:26] VITALS: RESP 20; TEMP 98.8
[2020-11-07] MEDS ORDERED: HYDROmorphone 1 MG/ML 1 ML SYRINGE IVP STA ×2 (00:36→00:38)
--- NOTE | 2020-11-07 00:38 | XR ---
ADDENDUM - Added by Nicole Hein M.D. on 11/07/2020 12:41 AM (-07:00) Per RN, bit by dog, puncture wound on right thumb and index finger. Small opacity adjacent to the interphalangeal joint thought to be bone fragment could also be a foreign body. EXAM: XR Right Hand Complete, 3 or More Views CLINICAL HISTORY: ITS.REASON XR Reason: pain TECHNIQUE: Frontal, lateral and oblique views of the right hand. COMPARISON: No relevant prior studies available. FINDINGS: Bones/joints: Oblique fracture of the distal phalanx of the thumb. Intra-articular extension. Mild widening at the fracture site, 2 mm. Small bone fragment adjacent to the interphalangeal joint. No dislocation. Soft tissues: No radiopaque foreign body. IMPRESSION: 1. Oblique fracture of the distal phalanx of the thumb with intra- articular extension. 2. Small bone fragment adjacent to the interphalangeal joint of the thumb.
[2020-11-07] MEDS ORDERED: AMOXIC-POT CLAV 875MG STARTER PACK 2 TAB BTL PO STA (01:46)
[2020-11-07] MEDS ORDERED: AMOXIC-POT CLAV 875-125MG 1 EACH TAB PO STA (01:46)
[2020-11-07] MEDS ORDERED: ACET/COD 300 MG/30 MG STARTER PACK 6 TAB BTL PO STA (01:46)
[2020-11-07 02:02] VITALS: BP 140/97; PULSE 82
== END 2020-11-07 01:45 | disposition home or self-care (01) ==
LOC: SUPCPDRO 23:17 → EC 23:17
DX: S62.501A Fracture of unspecified phalanx of right thumb, initial encounter for closed fracture (principal); S61.411A Laceration without foreign body of right hand, initial encounter; J45.909 Unspecified asthma, uncomplicated; I10 Essential (primary) hypertension; E78.5 Hyperlipidemia, unspecified; K21.9 Gastro-esophageal reflux disease without esophagitis; W54.0XXA Bitten by dog, initial encounter; Z86.73 Personal history of transient ischemic attack (TIA), and cerebral infarction without residual deficits; Z23 Encounter for immunization
CPT/HCPCS: 73130; 90715; 99283; 90471; 96365; 96375; 96376 ×2; 96361; J1170 ×2; J0295

== ENCOUNTER → 2021-02-11 | Outpatient (CLI) | payer OTHER ==
--- NOTE | 2021-02-12 09:03 | CT ---
EXAMINATION TYPE: CT lumbar spine wo con DATE OF EXAM: 02/11/2021 COMPARISON: 06/26/2020 HISTORY: 46-year-old male M48.07 spinal stenosis, M54.5 back pain. Pain in in back and down legs TECHNIQUE: Contiguous axial scanning of the lumbar spine without IV contrast. Coronal and sagittal re constructions performed. CT DLP: 850 mGycm Automated exposure control for dose reduction was used. FINDINGS: Post surgical changes redemonstrated of previous L2-L5 posterior surgical fusion. Corresponding ashley ectomies. Interbody and lateral osseous fusion extends from L2 down to S1. Vertebral body heights are preserved. Redemonstrated is advanced degenerative disc disease above the fusion at T11-T12, T12-L1, and L1-L2. Progressive endplate spondylosis with sclerosis at L1-L2 and redemonstrated prominent grade 1 retroli sthesis probably causing mild narrowing of the spinal canal at this level. There is extensive metal hardware artifact limiting the surgical levels. Unable to adequately assess for any potential fluid collection along the laminectomy sites. Consideration could be given to ultra sound if there is clinical concern. Changes result in severe left greater than right neuroforaminal stenosis at L1-L2. Overall mild bony neuroforaminal narrowing on the left at the fused L4-L5 level. IMPRESSION: 1. ACCELERATED DISC/ENDPLATE DEGENERATIVE CHANGE AND HYPERTROPHIC FACET ARTHROPATHY ABOVE THE FUSION AT L1-L2. THERE IS A PROMINENT GRADE 1 RETROLISTHESIS REDEMONSTRATED HERE ALONG WITH MILD SPINAL KEVIN L STENOSIS AND SEVERE LEFT GREATER THAN RIGHT NEUROFORAMINAL STENOSIS. THE ENDPLATE SPONDYLOSIS SHOW SLIGHT PROGRESSION FROM PRIOR EXAM. 2. STATUS POST L2-S1 LUMBAR FUSION WITH LAMINECTOMIES. EXTENSIVE METAL HARDWARE ARTIFACT LIMITS ASSES SMENT OF THE LAMINECTOMY BED. UNABLE TO ADEQUATELY ASSESS FOR ANY POTENTIAL FLUID COLLECTION HERE. IF CLINICAL CONCERN, TARGETED ULTRASOUND COULD BE CONSIDERED.
--- NOTE | 2021-02-12 09:07 | XR ---
EXAM TYPE: LUMBAR SPINE X RAY SERIES COMPARISON: 02/20/2017 HISTORY: Pain TECHNIQUE: 4 views are submitted. FINDINGS: Postsurgical changes are noted. There is severe degenerative disc disease L-1-L2 with retrolisthesis. Moderate to severe degenerative disc disease lower thoracic spine. Surgical levels appear in near-an atomic alignment. Foraminal encroachment at multiple levels suspected. IMPRESSION: 1. Severe degenerative disc disease L-1-L2. 2. Postsurgical change with suspected multilevel foraminal encroachment. 3. Moderate to severe lower thoracic spine degenerative disc disease.
== END | disposition home or self-care (01) ==
LOC: RADCTMAIN 17:00
PROVIDERS: ATTEND Neurological Surgery
DX: M48.061 Spinal stenosis, lumbar region without neurogenic claudication (principal); M51.36 Other intervertebral disc degeneration, lumbar region; M51.34 Other intervertebral disc degeneration, thoracic region
CPT/HCPCS: 72100; 72131

== ENCOUNTER 2021-02-17 00:51 | Emergency (ER) | payer OTHER ==
[2021-02-17 00:59] VITALS: BP 178/100; PULSE 76; RESP 19; TEMP 98.5
[2021-02-17] MEDS ORDERED: AMOXIC-POT CLAV 875MG STARTER PACK 2 TAB BTL PO STA (01:12)
[2021-02-17] MEDS ORDERED: ACET/COD 300 MG/30 MG STARTER PACK 6 TAB BTL PO STA (01:12)
[2021-02-17] MEDS ORDERED: methylPREDNISolone SOD SUCCI 125 MG/2 ML VIAL IM ONE (01:12)
[2021-02-17] MEDS ORDERED: MORPHINE SULFATE 4 MG/ML SYRINGE IM STA (01:12)
--- NOTE | 2021-02-17 01:14 | ED ---
General Adult HPI - General Chief complaint: Dental/Oral Stated complaint: Facial Swelling Time Seen by Provider: 02/17/21 01:06 Source: patient Mode of arrival: ambulatory - History of Present Illness Initial comments: 46-year-old male patient presents to the emergency department today for evaluation of right upper dental pain. Patient states he has very poor dentition alterable broken teeth down to the gumline. Patient states he started having pain yesterday morning. States the pain started getting worse tonight and he developed some facial swelling so he came in for further evaluation. Denies any fever or chills. States he has had pain radiating into his head. Reports some mild dizziness. Denies any nausea or vomiting. Denies taking anything for pain. Denies any other symptoms or concerns. - Related Data Home Medications Medication Instructions Recorded Confirmed atenoloL [Tenormin] 50 mg PO DAILY 05/16/16 12/29/17 lisinopriL [Prinivil] 20 mg PO DAILY 05/16/16 02/20/17 HYDROcodone/APAP 10-325MG [[place] 1 tab PO TID PRN 02/20/17 02/20/17 10-325] Omeprazole [PriLOSEC] 20 mg PO AC-BRKFST 02/20/17 02/20/17 Albuterol Sulfate [Proair 1 puff PO 12/29/17 Respiclick] Cyclobenzaprine [Flexeril] 12/29/17 Gabapentin [Neurontin] 800 mg PO 12/29/17 Morphine Sulfate [Ms Contin] 15 mg PO Q8HR PRN 12/29/17 12/29/17 Phentermine HCl [Adipex-P] 12/29/17 Sennosides [Senna] 12/29/17 diphenhydrAMINE HCL [Benadryl] 25 mg PO HS 12/29/17 12/29/17 Previous Rx's Medication Instructions Recorded Amoxic-Pot Clav 875-125Mg 1 tab PO Q12HR #20 tablet 11/07/20 [Augmentin 875-125] Amoxic-Pot Clav 875-125Mg 1 tab PO Q12HR #20 tablet 02/17/21 [Augmentin 875-125] HYDROcodone/APAP 10-325MG [[place] 1 tab PO Q6HR PRN 3 Days #12 tab 02/17/21 10-325] Allergies Allergy/AdvReac Type Severity Reaction Status Date / Time egg Allergy Unknown Verified 02/17/21 00:59 Fish Containing Products Allergy Unknown Verified 02/17/21 00:59 [Fish] NSAIDS (Non-Steroidal Allergy Anaphylaxis Verified 02/17/21 00:59 Anti-Inflamma Review of Systems ROS Statement: Those systems with pertinent positive or pertinent negative responses have been documented in the HPI. ROS Other: All systems not noted in ROS Statement are negative. 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 Past Psychological History: No Psychological Hx Reported Smoking Status: Never smoker Past Alcohol Use History: None Reported Past Drug Use History: None Reported - Past Family History Father Family Medical History: Asthma, Cancer, Coronary Artery Disease (CAD) Mother Family Medical History: Asthma, Coronary Artery Disease (CAD), Diabetes Mellitus General Exam General appearance: alert, in no apparent distress, other (This is a well- developed, well-nourished adult male patient in mild distress related to pain. Vital signs upon presentation are temperature 98.5F, pulse 76, respirations 19, blood pressure 178/100, pulse ox 98% on room air.) ENT exam: Present: normal oropharynx, mucous membranes moist, other (Poor dentition noted, right upper dentition reveals multiple fractured teeth down to the gumline. There is gingival erythema or hyperplasia. No evidence of drainable abscess.) Neck exam: Present: normal inspection. Absent: tenderness, meningismus, lymphadenopathy Respiratory exam: Present: normal lung sounds bilaterally. Absent: respiratory distress, wheezes, rales, rhonchi, stridor Cardiovascular Exam: Present: regular rate, normal rhythm, normal heart sounds. Absent: systolic murmur, diastolic murmur, rubs, gallop, clicks GI/Abdominal exam: Present: soft, normal bowel sounds. Absent: distended, tenderness, guarding, rebound, rigid Neurological exam: Present: alert, oriented X3, CN II-XII intact Psychiatric exam: Present: normal affect, normal mood Skin exam: Present: warm, dry, intact, normal color. Absent: rash Course Vital Signs 02/17/21 00:55 Temperature 98.5 F Pulse Rate 76 Respiratory 19 Rate Blood Pressure 178/100 O2 Sat by Pulse 98 Oximetry Medical Decision Making - Medical Decision Making 46-year-old male patient presents for evaluation of right upper dental pain and facial swelling. Physical examination does reveal evidence for very poor denti tion with gingival erythema hyperplasia. Fractured teeth down to the gumline on the right upper. He has right-sided facial swelling. He is afebrile, vital signs. He is given IM dose of morphine and Solu-Medrol. Started on Augmentin. He'll be discharged follow-up with the primary care physician for recheck in 1- 2 days. Instructed to follow-up with dentistry as soon as possible, states he does have dental insurance. Return parameters were discussed in detail. He verbalizes understanding and agrees with this plan. My attending is Dr. Lucia. Disposition Clinical Impression: Dental abscess Disposition: HOME SELF-CARE Condition: Good Instructions (If sedation given, give patient instructions): Dental Abscess (ED) Additional Instructions: Follow up with dentistry as soon as possible. Take medications as directed. Follow up with the primary care physician for recheck in 1-2 days. Prescriptions: HYDROcodone/APAP 10-325MG [[place] 10-325] 1 tab PO Q6HR PRN 3 Days #12 tab PRN Reason: Pain Is patient prescribed a controlled substance at d/c from ED?: Yes When asked, does pt state using other controlled substances?: No If prescribed controlled substance>3 days was MAPS reviewed?: Prescribed <3 Days If opioid is for acute pain is fill amount 7 days or less?: Yes If Rx opioid, was Start Talking consent form obtained?: Yes Referrals: Jackson Torres MD [Primary Care Provider] - 1-2 days Time of Disposition: 01:13
== END 2021-02-17 01:38 | disposition home or self-care (01) ==
LOC: EC 00:51
DX: K04.7 Periapical abscess without sinus (principal); R42 Dizziness and giddiness; J45.909 Unspecified asthma, uncomplicated; I10 Essential (primary) hypertension; K21.9 Gastro-esophageal reflux disease without esophagitis; Z86.73 Personal history of transient ischemic attack (TIA), and cerebral infarction without residual deficits; Z91.012 Allergy to eggs; Z91.013 Allergy to seafood; Z88.6 Allergy status to analgesic agent; Z79.899 Other long term (current) drug therapy
CPT/HCPCS: 99284; 96372 ×2; J2270; J2930

== ENCOUNTER → 2021-09-17 | Outpatient (CLI) | payer OTHER ==
--- NOTE | 2021-09-18 00:31 | MR ---
EXAMINATION TYPE: MR knee LT wo con DATE OF EXAM: 09/17/2021 COMPARISON: None HISTORY: Outer front left knee pain and swelling for 3 months due to slip and fall. History of surger y. Multiplanar multiecho imaging of the left knee without contrast. There is hypertrophic degenerative spurring in the femoral and tibial condyles medially and laterally . There is narrowing of the joint spaces and more noticeable in the medial joint space. There is a mo derate size knee joint effusion. There is previous surgery with linear defect in the proximal anterio r tibia and in the distal femur. The posterior cruciate ligament is intact. There is complete tear of the anterior cruciate ligament. No fracture line seen. The collateral ligaments are intact. There is some minimal increased signal on the proton density images in the subchondral medial tibial condyle consistent with a mild bone bruis e and edema. There is similar minimal change in the subchondral medial femoral condyle. There is defo rmity of the posterior horn of the medial meniscus with thinning and likely surgical changes. There i s also thinning anterior horn of the medial meniscus. There are small areas of increased signal in th e anterior and posterior horns of the lateral meniscus. IMPRESSION: Moderate hypertrophic osteoarthritis. Complete tear anterior cruciate ligament. Degenerative thinning of the medial meniscus with probably some surgical changes. Multiple small tears of the anterior and posterior horns of the lateral meniscus. No fracture seen. Knee joint effusion. Mild subchondral edema on both sides of the medial joint space consistent with bone bruise.
== END | disposition home or self-care (01) ==
LOC: RADMRIMAIN 17:41
PROVIDERS: ATTEND Neurological Surgery
DX: M17.12 Unilateral primary osteoarthritis, left knee (principal); M25.462 Effusion, left knee; M23.342 Other meniscus derangements, anterior horn of lateral meniscus, left knee; M23.352 Other meniscus derangements, posterior horn of lateral meniscus, left knee

== ENCOUNTER → 2021-10-10 | Outpatient (CLI) | payer OTHER ==
--- NOTE | 2021-10-10 21:25 | CT ---
EXAMINATION TYPE: CT lumbar spine wo con DATE OF EXAM: 10/10/2021 6:15 PM COMPARISON: CT lumbar spine February 11, 2021 HISTORY: SPINAL STENOSIS. Prior surgery with persistent pain. Progress study. CT DLP: 2579.7 mGycm Automated exposure control for dose reduction was used. Unenhanced CT of the lumbar spine was performed. Bone and soft tissue window settings are submitted as well as coronal and sagittal reconstructions. There are 5 lumbar type vertebra are redemonstrated. Persistent posterior interpedicular rods and scr ews transfix L2-L5 levels bilaterally. Artificial disc material L2-L3 through the L4-L5 levels is red emonstrated. Intervertebral metallic fusion device L5-S1 level again seen. Alignment stable and satis factory. Posterior laminectomy defects with spinous process resection are redemonstrated. There is gr juanita 1 retrolisthesis T12 on L1 and L1 on L2. Moderate disc space narrowing with vacuum disc phenomeno n L1-L2 level is redemonstrated. Mild disc space narrowing and vacuum disc phenomenon T12-L1 level re demonstrated. Axial images redemonstrate mild to moderate facet arthropathy at the L1-L2 level. There is persistent but stable severe left greater than right bilateral neural foraminal narrowing at this level demonst rated. Successful posterior decompression changes in the mid to lower cervical spine redemonstrated. Some small posterior ossific fragments again seen. There is persistent ill-defined fluid and scarring posteriorly. Muscle bulk is maintained. Visualized liver is heterogeneously hypodense suggesting dif fuse fatty infiltration. IMPRESSION: Postsurgical changes L2-S1 level redemonstrated. Persistent spondylolisthesis and degener ative changes in the upper lumbar spine. No significant change from prior CT as detailed above.
--- NOTE | 2021-10-11 17:28 | XR ---
EXAMINATION TYPE: XR lumbar spine with bend/flex, 7 views DATE OF EXAM: 10/10/2021 Comparison: 02/11/2021 Clinical History: 46-year-old male M48.07 spinal stenosis Findings: Post surgical change of L2-L5 posterior and interbody fusion with corresponding laminectomies. Additi onal large interbody fixation screw L5-S1. No retropulsion of the interbody devices. Moderate degener ative disc disease visualized lower thoracic spine and upper lumbar spine. On neutral, there is moder ate degenerative joint space narrowing with endplate sclerosis and spondylosis above the fusion at L1 -L2. Fixed grade 1 retrolisthesis here of approximately 1 cm. No dynamic subluxation identified on fl exion or extension views. Impression: 1. L2-L5 posterior and interbody fusion with corresponding laminectomies. Additional interbody fusion L5-S1. 2. Redemonstrated moderate degenerative disc disease lower thoracic and upper lumbar spine. 3. Prominent grade 1 retrolisthesis above the fusion at L1-L2 is also redemonstrated and shows no dyn amic subluxation on flexion-extension.
== END | disposition home or self-care (01) ==
LOC: RADCTMAIN 17:57
PROVIDERS: ATTEND Neurological Surgery
DX: M43.16 Spondylolisthesis, lumbar region (principal); M47.816 Spondylosis without myelopathy or radiculopathy, lumbar region
CPT/HCPCS: 72114; 72131

== ENCOUNTER → 2023-01-18 | Outpatient (CLI) | payer OTHER ==
--- NOTE | 2023-01-18 16:58 | MR ---
EXAMINATION TYPE: MR cervical spine wo con DATE OF EXAM: 01/18/2023 COMPARISON: 06/15/2017 HISTORY: Neck pain, pain between neck and right shoulder blade, numbness in right hand/fingers CONTRAST: Performed utilizing 0 mL intravenous Gadavist gadolinium contrast. TECHNIQUE: Multiplanar multiecho imaging on a 3.0 Jenni magnet is performed through the cervical spin e. FINDINGS: The craniovertebral junction is normal. Vertebral body alignment is normal. C7-T1: No focal disc herniation or significant disc bulge is evident. No spinal canal stenosis or n eural foraminal stenosis is present. C6-7: Broad-based disc bulge has some moderate anterior thecal sac compression. No AP spinal canal st enosis. No cord contact is evident. Neural foramen are patent. Some endplate changes at the disc leve l are evident. Disc bulge appear to be developing from comparison. C5-6: No focal disc herniation or significant disc bulge is evident. No spinal canal stenosis or lawrence ral foraminal stenosis is present. C4-5: Anterior cervical fusion is present at this level. This has some susceptibility artifact anteri kassandra. No residual focal disc herniation or significant disc bulge is evident. No spinal canal stenos is or neural foraminal stenosis is present. C3-4: No focal disc herniation or significant disc bulge is evident. No spinal canal stenosis or lawrence ral foraminal stenosis is present. C2-3: No focal disc herniation or significant disc bulge is evident. No spinal canal stenosis or lawrence ral foraminal stenosis is present. IMPRESSIONS: 1. Anterior cervical fusion C4-5. Previous disc bulging at this level is not evident postsurgically. 2. New broad-based central disc bulge with mild to moderate anterior thecal sac compression C6-7. Corwin e endplate Modic type I endplate changes are present.
--- NOTE | 2023-01-19 12:06 | XR ---
EXAMINATION TYPE: XR cervical spine limited DATE OF EXAM: 01/18/2023 COMPARISON: NONE HISTORY: Pain TECHNIQUE: 3 views are submitted. FINDINGS: The odontoid is intact. There are no compression deformities. The prevertebral soft tissue structur es are within normal limits. There is postsurgical change C4-C5 with anterior fixation. Surgical scr ews appear well situated within their respective vertebral segments. There is a 3 mm retrolisthesis o f C4 relative to C5. Moderate degenerative disc disease C6-C7. IMPRESSION: 1. Postsurgical change with 3 mm retrolisthesis of C4 relative to C5 2. Moderate degenerative disc disease C6-C7.
== END | disposition home or self-care (01) ==
LOC: RADMRIMAIN 14:22
PROVIDERS: ATTEND Neurological Surgery
DX: M50.223 Other cervical disc displacement at C6-C7 level (principal); M48.02 Spinal stenosis, cervical region; Z98.1 Arthrodesis status
CPT/HCPCS: 72040; 72141

== ENCOUNTER → 2023-08-07 | Outpatient (CLI) | payer OTHER ==
--- NOTE | 2023-08-07 10:59 | MR ---
EXAMINATION TYPE: MR lumbar spine wo con DATE OF EXAM: 08/07/2023 COMPARISON: None HISTORY: Low back pain into [place] extremities CONTRAST: 0 mL intravenous Gadavist. TECHNIQUE: Multiplanar, multisequence images of the lumbar spine were acquired. Metal susceptibility compensatio n was performed. Study is without intravenous contrast. FINDINGS: L5-S1: Some disc space narrowing is present. No focal disc herniation or significant disc bulge. No s chris canal stenosis. Laminectomy has been performed. L4-L5: Pedicle screws are present limiting the evaluation. Disc spacer may be present. There is narro wing of the disc height posteriorly. No focal disc herniation is evident. No spinal canal stenosis pr esent. L3-L4: No focal disc herniation or significant disc bulge is evident. No spinal canal stenosis is robbin ntified. Exam is limited due to susceptibility artifacts. Posterior to the L3 and L4 levels posterior to the spinal canal is a fluid signal area. Pseudomeningocele may be present. Due to susceptibility artifact, evaluation for communication with the thecal sac is inconclusive. L2-L3: Due to susceptibility artifact this level is essentially nondiagnostic. L1-L2: Due to susceptibility artifact this level is essentially nondiagnostic. T12-L1: No significant disc bulge or disc herniation. No spinal canal stenosis. No foraminal stenos is. Neural foramen are patent.. IMPRESSION: 1. 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 2. There is severe susceptibility artifact making some levels nondiagnostic. 3. No obvious spinal canal stenosis at the visualized levels.
== END | disposition home or self-care (01) ==
LOC: RADMRIMAIN 07:50
PROVIDERS: ATTEND Neurological Surgery
DX: M48.07 Spinal stenosis, lumbosacral region (principal)
CPT/HCPCS: 72148